=== PATIENT | female | born 1975 | race American Indian/Alaskan Native ===

== ENCOUNTER 2021-06-07 19:15 | Emergency (ER) | payer SELFPAY ==
[2021-06-07 20:43] VITALS: BP 170/98
--- NOTE | 2021-06-07 20:44 | Event Note ---
ED Screening Note Date of service: 06/07/21 Time: 20:43 ED Screening Note: A 45-year-old female with a history of bronchitis who presents for body aches nausea vomiting abdominal pain cramping and chest pain for the past 3 days. States febrile however no T-max noted at home. Cough is productive thick white chest pain described as 4/10 severity by deep inspiration and movement. Patient denies relieving factors This initial assessment/diagnostic orders/clinical plan/treatment(s) is/are sub ject to change based on patients health status, clinical progression and re- assessment by fellow clinical providers in the ED. Further treatment and workup at subsequent clinical providers discretion. Patient/guardian urged not to elope from the ED as their condition may be serious if not clinically assessed and managed. Initial orders include: EKG, CXR, CMP, CBC, UA, Lipase, HCG,
[2021-06-07 21:27] LABS: Basophils # (Auto) 0.1 K/mm3 (0.0-0.1); Eosinophils # (Auto) 0.1 K/mm3 (0.0-0.4); Eosinophils % (Auto) 1.5 % (0.0-4.3); Hematocrit 41.1 % (30.3-42.9); Hemoglobin 13.4 gm/dl (10.1-14.3); Lymphocytes # (Auto) 1.9 K/mm3 (1.2-5.4); Lymphocytes % (Auto) 28.8 % (13.4-35.0); Mean Corpuscular HGB Conc 33 % (30-34); Mean Corpuscular Volume 91 fl (79-97); Monocytes # (Auto) 0.7 K/mm3 (0.0-0.8); Monocytes % (Auto) 10.5 % (0.0-7.3); Platelet Count 332 K/mm3 (140-440); Red Blood Count 4.52 M/mm3 (3.65-5.03); Red Cell Distribution Width 14.7 % (13.2-15.2)
[2021-06-07 21:30] LABS: Alanine Aminotransferase 35 units/L (7-56); Albumin 5.1 g/dL (3.9-5); BUN/Creatinine Ratio 21; Blood Urea Nitrogen 17 mg/dL (7-17); Hemolysis Index 55
--- NOTE | 2021-06-07 22:37 | Emergency Department Report ---
ED Fever HPI - General Chief Complaint: Upper Respiratory Infection Stated Complaint: BODY ACHES PUI?: Yes Time Seen by Provider: 06/07/21 22:31 Source: patient Exam Limitations: no limitations - History of Present Illness Initial Comments: Chief complaint: "Body aches, I often gets bronchitis this time of year." HPI: This is a 45-year-old female with history of bronchitis who presents with body aches, cough, diarrhea, fever chills since Sunday. She has been hydrating with Gatorade. She works with children. Last COVID vaccine dose in December. Sh sheron has not received booster. No recent COVID test. She feels dehydrated. She desires inhaler. She has intermittent abdominal cramping. Cough is productive of white sputum. Chest pain with cough. She denies loss of taste or smell. Timing/Duration: other (2 days fever chills) Fever Severity/Quality: subjective Associated Symptoms: abdominal pain, chest pain, cough, muscle aches, sore throat ED Review of Systems ROS: Stated complaint: BODY ACHES Other details as noted in HPI Comment: All other systems reviewed and negative Constitutional: chills, fever ENT: throat pain Respiratory: cough. denies: shortness of breath, wheezing Cardiovascular: chest pain Gastrointestinal: abdominal pain, diarrhea ED Past Medical Hx - Past Medical History Previous Medical History?: No - Surgical History Past Surgical History?: No - Social History Smoking Status: Never Smoker Substance Use Type: None - Medications Home Medications: Home Medications Medication Instructions Recorded Confirmed Last Taken Type Albuterol Mdi (or & Nicu Only) 2 puff IH QID PRN #8.5 gram 06/07/21 Unknown Rx [ProAir HFA Inhaler] Ibuprofen [Motrin 800 MG tab] 800 mg PO Q8HR PRN #15 tablet 06/07/21 Unknown Rx Prednisone [predniSONE 10 mg 10 mg PO .TAPER #1 06/07/21 Unknown Rx (6-Day Pack, 21 Tabs)] ED Physical Exam - General Limitations: No Limitations General appearance: alert, in no apparent distress, other (Well-appearing nontoxic ) - Head Head exam: Present: atraumatic, normocephalic - Eye Eye exam: Present: normal appearance - ENT ENT exam: Present: mucous membranes moist - Neck Neck exam: Present: normal inspection, full ROM - Respiratory Respiratory exam: Present: normal lung sounds bilaterally. Absent: respiratory distress, wheezes, rales, rhonchi - Cardiovascular Cardiovascular Exam: Present: regular rate, normal rhythm, normal heart sounds. Absent: systolic murmur, diastolic murmur, rubs, gallop - GI/Abdominal GI/Abdominal exam: Present: soft, normal bowel sounds. Absent: distended, tenderness, guarding, rebound - Extremities Exam Extremities exam: Present: normal inspection - Neurological Exam Neurological exam: Present: alert, oriented X3, normal gait - Psychiatric Psychiatric exam: Present: normal affect, normal mood - Skin Skin exam: Present: warm, dry, intact, normal color. Absent: rash ED Course Vital Signs 06/07/21 19:17 Temperature 98.3 F Pulse Rate 70 Respiratory 18 Rate Blood Pressure 170/98 [Right] O2 Sat by Pulse 98 Oximetry ED Medical Decision Making - Lab Data Result diagrams: 06/07/21 20:53 06/07/21 20:53 Laboratory Results - last 24 hr 06/07/21 06/07/21 20:53 20:53 WBC 6.5 RBC 4.52 Hgb 13.4 Hct 41.1 MCV 91 MCH 30 MCHC 33 RDW 14.7 Plt Count 332 Lymph % (Auto) 28.8 Bates % (Auto) 10.5 H Eos % (Auto) 1.5 Baso % (Auto) Credit Collector Lymph # (Auto) 1.9 Bates # (Auto) 0.7 Eos # (Auto) 0.1 Baso # (Auto) 0.1 Seg Neutrophils % 57.7 Seg Neutrophils # 3.8 Sodium 139 Potassium 4.3 Chloride 100.9 Carbon Dioxide 22 Anion Gap 20 BUN 17 Creatinine 0.8 Estimated GFR > 60 BUN/Creatinine Ratio 21 Glucose 112 H Calcium 10.0 Total Bilirubin 0.30 AST 28 ALT 35 Alkaline Phosphatase 153 H Total Protein 8.6 H Albumin 5.1 H Albumin/Globulin Ratio 1.5 Lipase 171 H - Medical Decision Making Viral syndrome differential diagnosis includes COVID-19 versus influenza recommended supportive care including hydration. Patient is hydrating orally with Gatorade at present time. Prescribed ibuprofen, prednisone, albuterol MDI. Referred to outpatient medicine physician. CBC chemistry within normal lopez its. Critical care attestation.: If time is entered above; I have spent that time in minutes in the direct care of this critically ill patient, excluding procedure time. ED Disposition Clinical Impression: Viral syndrome, History of bronchitis Disposition: HOME / SELF CARE / HOMELESS Is pt being admited?: No Does the pt Need Aspirin: No Condition: Stable Instructions: Viral Illness, Adult Prescriptions: Ibuprofen [Motrin 800 MG tab] 800 mg PO Q8HR PRN #15 tablet PRN Reason: Pain , Severe (7-10) Prednisone [predniSONE 10 mg (6-Day Pack, 21 Tabs)] 10 mg PO .TAPER #1 Albuterol Mdi (or & Nicu Only) [ProAir HFA Inhaler] 2 puff IH QID PRN #8.5 gram PRN Reason: Shortness Of Breath Referrals: MIKE BECKER MD [Staff Physician] - 3-5 Days
== END 2021-06-07 22:45 | disposition home or self-care (01) ==
LOC: ED 19:15
DX: B34.9 Viral infection, unspecified (principal); J40 Bronchitis, not specified as acute or chronic
CPT/HCPCS: 36415; 80053; 83690; 85025; 99283